=== PATIENT | female | born 1990 | race Caucasian/White ===

== ENCOUNTER 2021-10-28 06:27 | Emergency (ER) | payer SELFPAY ==
[~2021-10-28] VITALS: Ht 167.6 cm; Wt 81.6 kg
--- NOTE | 2021-10-28 06:28 | NUR ---
PT REYMUNDO MENDOZA, TAKEN TO ER CHAIR A
--- NOTE | 2021-10-28 06:35 | NUR ---
DR LUONG EXAMINING PT
[2021-10-28 06:39] VITALS: BP 140/80
--- NOTE | 2021-10-28 06:41 | NUR ---
PT MOVED TO ER BED 11
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
--- NOTE | 2021-10-28 07:06 | NUR ---
PT TAKEN TO X-RAY ACCOMPANIED BY P OFFICER .
--- NOTE | 2021-10-28 07:07 | NUR ---
PT TAKEN TO XRAY VIA WC, ACCOMPANIED BY [facility]
--- NOTE | 2021-10-28 07:10 | NUR ---
RECIEVED REPORT FROM CHRISTIANO
[2021-10-28 08:24] VITALS: BP 140/80
--- NOTE | 2021-10-28 08:24 | NUR ---
PATIENT BIB [facility]. PATIENT EXAMINED BY DR. LUONG. PATIENT MEDICALLY CLEARED AND RELEASED IN CUSTODY IN STABLE CONDITION. ORIGINAL PRE-BOOK FORM GIVEN TO OFFICER MATT.
== END 2021-10-28 09:05 ==
LOC: MED 06:27
DX: S50.12XA Contusion of left forearm, initial encounter (principal); V89.2XXA Person injured in unspecified motor-vehicle accident, traffic, initial encounter; Y93.89 Activity, other specified; Y92.410 Unspecified street and highway as the place of occurrence of the external cause; Y99.8 Other external cause status
CPT/HCPCS: 71045; 72170; 73090; 90471; 90715; 99284